=== PATIENT | male | born 1970 | race Caucasian/White ===

== ENCOUNTER 2019-09-13 17:34 | Emergency (ER) | payer OTHER ==
[~2019-09-13] VITALS: Ht 188 cm; Wt 99.8 kg
[~2019-09-13 17:34] MED LIST: FLEXERIL10 MG PO; LIPITOR20 MG PO; LODINE
[2019-09-13] MEDS ORDERED: MUCINEX1200 MG PO (22:01)
== END 2019-09-13 22:22 | disposition home or self-care (01) ==
LOC: ER 17:34
DX: B34.9 Viral infection, unspecified (principal)

== ENCOUNTER 2021-04-20 11:12 | Emergency (ER) | payer OTHER ==
[~2021-04-20] VITALS: Ht 188 cm; Wt 95.3 kg
[~2021-04-20 11:12] MED LIST changes: +MUCINEX1200 MG PO
[2021-04-20] MEDS ORDERED: CANABI MEDICINAL (11:56)
[2021-04-20] MEDS ORDERED: FLAGYL500MG PO (18:37)
[2021-04-20] MEDS ORDERED: PEPCID AC20 MG PO (18:37)
[2021-04-20] MEDS ORDERED: CIPRO500 MG PO (18:37)
[2021-04-20] MEDS ORDERED: INTESTINEX680 M1 PO (18:37)
== END 2021-04-20 19:05 ==
LOC: ER 11:12
DX: A08.39 Other viral enteritis (principal); E86.0 Dehydration; B34.9 Viral infection, unspecified; Z03.818 Encounter for observation for suspected exposure to other biological agents ruled out

== ENCOUNTER 2024-12-22 09:14 | Emergency (ER) | payer OTHER ==
[~2024-12-22] VITALS: Ht 188 cm; Wt 104.3 kg
[~2024-12-22 09:14] MED LIST changes: +CANABI MEDICINAL; +CIPRO500 MG PO; +FLAGYL500MG PO; +INTESTINEX680 M1 PO; +PEPCID AC20 MG PO
[2024-12-22] MEDS ORDERED: ACETAMINOPHEN 500 MG GEL..CAP PO STA (10:29)
[2024-12-22] MEDS ORDERED: ACETAMINOPHEN 500 MG GEL..CAP PO ONE (10:35)
[2024-12-22 12:10] LABS: COVID-19 AG POSITIVE (NEGATIVE)
== END 2024-12-22 13:12 | disposition home or self-care (01) ==
LOC: ER 09:34
PROVIDERS: General Practice
DX: U07.1 COVID-19 (principal)